=== PATIENT | female | born 1990 | race Caucasian/White ===

== ENCOUNTER 2017-08-30 18:57 | Emergency (ER) | payer MEDICAID, SELFPAY ==
[2017-08-30 18:59] VITALS: BP 132/66; PULSE 81; RESP 17; TEMP 36.7; O2SAT 100; BMI 18.7
[2017-08-30 19:38] LABS: Red Blood Cells-Urine 0 SEEN /hpf (0-5)
[2017-08-30 19:44] LABS: Color, Urine Yellow (Yellow); Glucose, Dipstick Normal (Normal); Ketone-Dipstick Negative (Negative); Leukocyte Esterase-Dipstick 100 /ul (Negative); Nitrite-Dipstick Negative (Negative); Occult Blood-Urine 10 /ul (Negative); Protein-Dipstick 30 mg/dl (Negative); Specific Gravity, Urine 1.015 (1.002-1.030); Urine Bilirubin Dipstick Negative (Negative); Urine Clarity Cloudy (Clear); Urine Urobilinogen Normal (Normal); Urine pH 6.5 (5.0 - 8.0)
[2017-08-30 20:11] LABS: Internal QC Validated? YES +Cl - CLEAR BKGD; Pregnancy, Urine Negative Negative
[2017-08-30 20:23] LABS: Anion Gap 5 (5-15); BUN 16 mg/dL (7-18); BUN/Creat Ratio 18.5 RATIO (10-20); Calcium,Total 8.8 mg/dL (8.5-10.1); Chloride 107 mmol/L (98-107); Creatinine, Serum 0.87 mg/dL (0.55-1.02); EST Glomerular Filtration Rate 84 mL/min (>60); Est Glom Filt Rate - Afr Amer 102 mL/min (>60); Estimated Creatinine Clearance 82.08 ml/min; Glucose 84 mg/dL (74-106); Potassium 3.9 mmol/L (3.5-5.1); Sodium Level 138 mmol/L (136-145)
[2017-08-30 20:34] LABS: Squamous Epithelial Cells - UA 0-5 SEEN /hpf (5-10)
[2017-08-30 20:35] LABS: Mucous, Urine RARE /hpf (<or=2+); White Blood Cells 10-25 SEEN /hpf (0-5)
[2017-08-30 20:37] LABS: Bacteria RARE /hpf (None Seen)
--- NOTE | 2017-08-30 21:28 | ED.VISSUMM ---
- ER Visit Summary Date of Service: 08/30/17 Chief Complaint: Dysuria History of Present Illness: The patient is a 27 F presents with dysuria ?3 months. Patient states she just started her fourth course of antibiotics today. She states she will intermittently improve and then her symptoms return. She states she was on a Z-Ignacio last week. She does not recall the other 2 antibiotics she was on before this. She started Bactrim today. This was after review of a urine culture that was done at [facility]. She states that she called for her results today and they looked at her urine culture and called her in Bactrim. This was started today. She complains of mild low back pain. Denies nausea vomiting. Denies fever. Denies possibility of . Physical Examination: Vitals are stable. Patient is afebrile. Alert no acute distress. HEENT exam is unremarkable. Neck is supple. Lungs are clear and equal bilaterally. Heart is regular rate and rhythm. Abdomen is soft nontender nondistended. Back: no cva tenderness Extremities are unremarkable. Skin is warm and dry. No focal neurologic deficit. Remainder of exam is unremarkable. Emergency Department Course and Treatment: Urinalysis shows 10-25 white blood cells, 0-5 epithelial cells. HCG negative. Chemistries unremarkable. Patient states she was given 3 days of Bactrim today by [facility]. She is concerned about her low back pain and possibility of a kidney infection. She will be given an additional prescription for 11 more days of Bactrim to complete 14 days. She is advised to follow-up with her primary care physician. Advised return to ED if worsening complaints. Disposition: Discharge home Impression: UTI This note was generated with [employer] dictation software. It may contain incorrect words, spelling, and punctuation that were not noted in review of the chart prior to signing ED Disposition - Plan for ED Patient: Chief Complaint: Complaint Referrals: Care Physician,No Primary [Primary Care Provider] -
--- NOTE | 2017-08-30 21:31 | ED.DCSUM_ITS ---
- ER Visit Summary Date of Service: 08/30/17 Chief Complaint: Dysuria History of Present Illness: The patient is a 27 F presents with dysuria ?3 months. Patient states she just started her fourth course of antibiotics today. She states she will intermittently improve and then her symptoms return. She states she was on a Z-Ignacio last week. She does not recall the other 2 antibiotics she was on before this. She started Bactrim today. This was after review of a urine culture that was done at [facility]. She states that she called for her results today and they looked at her urine culture and called her in Bactrim. This was started today. She complains of mild low back pain. Denies nausea vomiting. Denies fever. Denies possibility of . Physical Examination: Vitals are stable. Patient is afebrile. Alert no acute distress. HEENT exam is unremarkable. Neck is supple. Lungs are clear and equal bilaterally. Heart is regular rate and rhythm. Abdomen is soft nontender nondistended. Back: no cva tenderness Extremities are unremarkable. Skin is warm and dry. No focal neurologic deficit. Remainder of exam is unremarkable. Emergency Department Course and Treatment: Urinalysis shows 10-25 white blood cells, 0-5 epithelial cells. HCG negative. Chemistries unremarkable. Patient states she was given 3 days of Bactrim today by [facility]. She is concerned about her low back pain and possibility of a kidney infection. She will be given an additional prescription for 11 more days of Bactrim to complete 14 days. She is advised to follow-up with her primary care physician. Advised return to ED if worsening complaints. Disposition: Discharge home Impression: UTI This note was generated with [employer] dictation software. It may contain incorrect words, spelling, and punctuation that were not noted in review of the chart prior to signing ED Disposition - Plan for ED Patient: Chief Complaint: Complaint Referrals: Care Physician,No Primary [Primary Care Provider] -
--- NOTE | 2017-08-30 21:31 | ED.DEP ---
ED Disposition - Plan for ED Patient: Chief Complaint: Complaint Instructions: ED UTI Cystitis Female Prescriptions: Smz/Tmp Ds [Bactrim Ds] 1 tablet PO BID #22 tablet Referrals: Care Physician,No Primary [Primary Care Provider] - Jayy Hood MD [STAFF PHYSICIAN] -
== END 2017-08-30 21:49 | disposition home or self-care (01) ==
PROVIDERS: Emergency Provider Emergency Medicine
DX: N39.0 Urinary tract infection, site not specified (principal)
CPT/HCPCS: 80048; 81001; 81025; 99282